=== PATIENT | male | born 1985 | race Caucasian/White ===

== ENCOUNTER 2021-10-07 10:46 | Emergency (ER) | payer OTHER ==
[2021-10-07] MEDS ORDERED: VIBRAMYCIN 100100 MG GT (11:44)
[2021-10-11 23:10] LABS: CHLAMYDIA TRACHOMATIS, NAA Positive (Negative); NEISSERIA GONORRHOEAE, NAA Positive (Negative)
== END 2021-10-07 12:13 | disposition home or self-care (01) ==
LOC: ER1 10:46
PROVIDERS: Physician Assistant
DX: Z20.2 Contact with and (suspected) exposure to infections with a predominantly sexual mode of transmission (principal); I10 Essential (primary) hypertension; F17.200 Nicotine dependence, unspecified, uncomplicated
CPT/HCPCS: 81001; 96372; 99283; J0696

== ENCOUNTER 2021-10-17 01:35 | Emergency (ER) | payer OTHER ==
[~2021-10-17 01:35] MED LIST: VIBRAMYCIN 100100 MG GT
[2021-10-17 02:14] LABS: RED BLOOD COUNT 4.88 M/UL (4.20-5.50); WHITE BLOOD COUNT 14.5 K/UL (4.5-11.0)
[2021-10-17 03:24] LABS: BUN/CREATININE RATIO 11 (0-10)
== END 2021-10-17 03:56 | disposition home or self-care (01) ==
LOC: ER1 01:35
PROVIDERS: Physician Assistant
DX: R07.9 Chest pain, unspecified (principal); R07.0 Pain in throat
CPT/HCPCS: 70491; 71260; 80053; 82550; 82553; 83690; 83874; 84484; 85025; 85652; 86140; 93005; 99284; Q9967